=== PATIENT | female | born 1980 | race Caucasian/White ===

== ENCOUNTER 2016-02-25 12:10 | Day surgery (SDC) | payer OTHER ==
[2016-02-20 11:39] VITALS: BMI 27.1
[2016-02-25] MEDS ORDERED: BUPIVACAINE HCL/PF 0.5% (5MG/ML) 10 ML VIAL ONE (15:23)
--- NOTE | 2016-02-25 15:30 | HP ---
History & Physical Update - History History: No Change - Physical Physical: No Change - Assessment Assessment: No Change - Plan Plan: No Change
[2016-02-25] MEDS ORDERED: MIDAZOLAM HCL 2 MG/2 ML SINGLE DOSE VIAL ONE ×2 (15:41)
[2016-02-25] MEDS ORDERED: ROCURONIUM BROMIDE 50 MG/5 ML VIAL ONE ×2 (15:41→17:18)
[2016-02-25] MEDS ORDERED: PROPOFOL 20 ML ONE (15:41)
[2016-02-25] MEDS ORDERED: ceFAZolin SODIUM 1 GM VIAL IVPB ONE ×2 (16:17→16:19)
[2016-02-25] MEDS ORDERED: DEXAMETHASONE SOD PHOSPHATE 4 MG/1 ML VIAL ONE (16:25)
--- NOTE | 2016-02-25 18:15 | OP ---
Operative Note - Note: Operative Date: 02/25/16 Pre-Operative Diagnosis: Ventral hernia Operation: Robotic assisted repair of ventral hernia primary closure with running v-lock sutures. Post-Operative Diagnosis: Same as Pre-op Surgeon: Yoel Hood Paid Internship: Axel Rojo Anesthesiologist/SHELL SORTER: [place] Anesthesia: General Estimated Blood Loss (mls): 20 Fluid Volume Replaced (mls): 1,300 Operative Report Dictated: Yes
--- NOTE | 2016-02-25 18:16 | SURG ---
Surgery Cage Tender Note Cage Tender: Axel Rojo PA-C Date of Service: 02/25/16 Diagnosis: Large ventral hernia Procedure: Robotic assisted repair large ventral hernia (primary closure) I was present for the entirety of the operative procedure. For further detail, please refer to operative report. Visit type - Case Type Case Type: Scheduled Admission - New patient This patient is new to me today: Yes Date on this admission: 02/25/16
[2016-02-25] MEDS ORDERED: HYDROmorphone HCL CARPU-JECT 2 MG/1 ML DISP.SYRIN ONE (18:19)
[2016-02-25] MEDS ORDERED: LACTATED RINGERS SOLUTION 1,000 ML IV SCH ×2 (18:30→19:45)
[2016-02-25] MEDS: HYDROmorphone HCL CARPU-JECT 1 MG/1 ML DISP.SYRIN IVPUSH PRN ×4 (18:30→19:15)
[2016-02-25] MEDS ORDERED: ACETAMINOPHEN 325 MG TABLET (FP) PO PRN (19:34)
[2016-02-25] MEDS ORDERED: oxyCODONE HCL 5 MG TABLET PO PRN (19:34)
[2016-02-25] MEDS ORDERED: ONDANSETRON 4 MG/2 ML VIAL IVPB PRN (19:34)
[2016-02-25] MEDS ORDERED: HYDROmorphone HCL CARPU-JECT 1 MG/1 ML DISP.SYRIN IVPB PRN (20:06)
--- NOTE | 2016-02-26 08:26 | PN ---
Progress Note (short form) - Note Progress Note: ANESTHESIA POST-OP CHECK 35F s/p robotic laparoscopic ventral hernia repair under general anesthesia, POD #1. No acute complaints, denies N/V, tolerating PO liquids, voiding. Pain 4 -5/10 and tolerable. Vital Signs Temperature 98.7 F 02/26/16 07:38 Pulse Rate 67 02/26/16 07:38 Respiratory Rate 20 02/26/16 07:38 Blood Pressure 104/49 02/26/16 07:38 O2 Sat by Pulse Oximetry (%) 100 02/25/16 19:45 Active Medications Acetaminophen (Tylenol -) 325 mg PO Q4H PRN PRN Reason: PAIN Stop: 02/28/16 19:33 Last Admin: 02/26/16 06:51 Dose: 325 mg Acetaminophen (Tylenol -) 650 mg PO Q4H PRN PRN Reason: PAIN Stop: 02/28/16 19:34 Hydromorphone HCl (Dilaudid Injection -) 1 mg IVPB ONCE PRN PRN Reason: PAIN Stop: 02/26/16 20:05 Last Admin: 02/26/16 00:19 Dose: 1 mg Lactated Ringer's (Lactated Ringers Solution) 1,000 mls @ 40 mls/hr IV ASDIR OMAR Ondansetron HCl (Zofran Injection) 4 mg IVPB Q6H PRN PRN Reason: NAUSEA AND/OR VOMITING Last Admin: 02/26/16 00:27 Dose: 4 mg Oxycodone HCl (Roxicodone -) 5 mg PO Q4H PRN PRN Reason: PAIN SCALE 1-5 Last Admin: 02/26/16 06:50 Dose: 5 mg Oxycodone HCl (Roxicodone -) 10 mg PO Q4H PRN PRN Reason: PAIN SCALE 6-10 Gen: awake, alert No apparent anesthesia complications. Pain well controlled. Continue management as per primary team.
--- NOTE | 2016-02-26 09:07 | OP ---
DATE OF OPERATION: 02/25/2016 PROCEDURE: Robotic-assisted laparoscopic ventral hernia repair. PREOPERATIVE DIAGNOSIS: Ventral hernia. POSTOPERATIVE DIAGNOSIS: Ventral hernia with diastasis recti. SURGEON: Yoel Hood MD PARQUETRY LAYER: REYNALDO Hansen SECOND AUTOMATIC BOW MAKER MACHINE TENDER: REYNALDO Ricardo ANESTHESIA: General endotracheal. FINDINGS AND PROCEDURES: This is 35-year-old female who is several months who presents with severe bulging of the umbilicus on physical examination. Patient was noted to have a large umbilical defect which was about 2 cm, surrounding large defect, which was suspicious for ventral hernia versus diastasis recti. The patient was advised laparoscopic repair of the ventral hernia and consent was obtained, after discussing the risks, benefits, and alternatives to the procedure. The patient was brought to the operating room and placed in supine position. General endotracheal anesthesia was administered. A roll was placed in the patient's left flank. The abdomen was prepped and draped in the usual sterile fashion. Using lidocaine and 0.5% Marcaine, local anesthesia was then administered to both incision sites. The peritoneal cavity was entered by left subcostal 8-mm incision using the Veress needle technique. Pneumoperitoneum was established. Two other 8-mm ports were placed in the left flank posterior to the anterior axillary line, 7 mm away from each other. The peritoneal cavity was carefully inspected and was noted to be free of inadvertent injury. The umbilical defect was about 2 cm and the large 15 x 15 cm severely attenuated ventral hernia/diastasis was noted. The 3D laparoscope was then inserted at the middle port and the target organ was set. The robotic arms were docked. A fenestrated bipolar grasper was inserted at the left lower quadrant port and EndoWrist needle airport shuttle driver was inserted in the left upper quadrant port. It was decided at this point to repair the hernia/diastasis primarily with continuous No. 1 V-Loc nonabsorbable suture. This was done beginning from the lower-most part of the defect towards the xiphoid process. The repair was done with bites taken over the peritoneum/hernia sac. After this was completed, the peritoneal cavity was again inspected and was noted to be free of active bleeding. The robotic arms were undocked and the pneumoperitoneum was evacuated. The ports were removed. The wounds were closed with subcuticular Biosyn 4-0 suture, reinforced with Dermabond. An abdominal binder was applied. The patient was successfully extubated. The patient was transferred to the postanesthesia care unit in satisfactory condition. ESTIMATED BLOOD LOSS: About 20 mL. WOUND CLASS: Clean. The patient received a gram of Ancef prior to the start of the procedure. Danny [id number] MTDD
--- NOTE | 2016-02-26 10:34 | PN ---
Addendum entered and electronically signed by Gabriela Ontiveros PA 02/26/16 17:19: Pt reexamined. Her abd remains soft without any ecchymosis. She tolerated a diet today and has been oob and ambulating. Will plan for discharge today. Her pain improved with 10mg of oxycodone and will increase her script dose. I spoke with Dr. Hood and he also recommends motrin also between her narcotic doses. Original Note: Progress Note (short form) - Note Progress Note: Pt without complaints of nausea, she was medicated over the evening for nausea and pain. She ate breakfast this am. Currently she is having some abd pain. urinating without difficulty. Vital Signs Period Temp Pulse Resp BP Sys/Valladares Pulse Ox Last 24 Hr 97.7 F-99.3 F 61-76 14-20 103-123/48-77 98-100 PE: GEN:A&Ox3, NAD ABD: soft, non-distended, inc tenderness. Inc c/d/i with bandaids. LE: SCDs in place. No calf tenderness or swelling noted b/l Problem List - Problems (1) Diastasis of rectus abdominis Assessment/Plan: s/p robotic repair of diastasis with plication POD#1 oob/ambulate oral pain medications continue regular diet discharge planning for today Code(s): M62.08 - SEPARATION OF MUSCLE (NONTRAUMATIC), OTHER SITE
[2016-02-26] MEDS: oxyCODONE HCL 5 MG TABLET PO PRN ×2 (11:18→17:24)
[2016-02-26] MEDS: ACETAMINOPHEN 325 MG TABLET (FP) PO PRN ×2 (11:21→17:26)
[2016-02-26] MEDS ORDERED: KETOROLAC TROMETHAMINE 30 MG/1 ML VIAL IVPUSH ONE (12:49)
[2016-02-26 15:11] VITALS: BP 96/42; PULSE 65; TEMP 98.5
== END 2016-02-26 20:34 | disposition home or self-care (01) ==
LOC: JASU-SURG 12:10 → J5S 19:40 → JASU-SURG 02-26 20:34
PROVIDERS: ATTEND Surgery
PROC: 0WQF4ZZ Repair Abdominal Wall, Percutaneous Endoscopic Approach (ICD-10-PCS; principal; 2016-02-25 13:30)
DX: K42.9 Umbilical hernia without obstruction or gangrene (principal); K43.9 Ventral hernia without obstruction or gangrene
CPT/HCPCS: 84703; 94760